=== PATIENT | female | born 1995 | race Caucasian/White ===

== ENCOUNTER 2017-01-15 00:23 | Emergency (ER) | payer BC, SELFPAY ==
[2017-01-15] MEDS ORDERED: Clindamycin 150 MG CAP ONE (00:47)
== END 2017-01-15 00:53 | disposition home or self-care (01) ==
LOC: MADERS 00:23
DX: N61.0 Mastitis without abscess (principal)
CPT/HCPCS: 99283

== ENCOUNTER 2019-01-11 14:41 | Emergency (ER) | payer BC ==
[2019-01-11 15:14] LABS: #Basophils 0.1 thou/uL (0.0-0.2); #Eosinphils 0.6 thou/uL (0.0-0.7); #Lymphocytes 2.3 thou/uL (1.20-3.40); #Monocytes 0.5 thou/uL (0.11-0.59); #Neutrophils 6.5 thou/uL (1.40-6.50); %Basophils 0.7 % (0.0-1.0); %Lymphocytes 23.3 % (21.0-51.0); %Monocytes 5.2 % (0.0-10.0); %Neutrophils 64.8 % (42.0-75.0); Hemoglobin 12.2 g/dL (12.0-16.0); Mean Corpuscular HGB CONC 33.9 g/dL (32.0-36.0); Mean Corpuscular Hemoglobin 27.6 pg (27.0-31.0); Mean Corpuscular Volume 81.7 fL (78.0-98.0); Mean Platelet Volume 6.7 fL (7.4-10.4); Platelet Count 300 thou/uL (130-400); RBC Distribution Width 11.7 % (11.5-14.5); Red Blood Cell (RBC) Count 4.41 mill/uL (4.20-5.40)
[2019-01-11 15:34] LABS: ALT (SGPT) 13 U/L (8-55); AST (SGOT) 18 U/L (5-34); Alkaline Phosphatase 80 U/L (40-150); Anion Gap 12 mmol/L (10-20); BUN (Urea Nitrogen) 9 mg/dL (7.0-18.7); Bilirubin, Total 0.4 mg/dL (0.2-1.2); CK (CPK) 59 U/L (29-168); Calc. Creatinine Clearance 0 mL/min (70-130); Carbon Dioxide 24 mmol/L (22-29); Chloride 106 mmol/L (98-107); Estimated GFR-MDRD Greater than 90; Globulin 3.1 g/dL (2.4-3.5); Glucose 97 mg/dL (70-105); Potassium 4.2 mmol/L (3.5-5.1); Protein, Total 7.1 g/dL (6.0-8.3); Sodium 138 mmol/L (136-145)
[2019-01-11 15:56] LABS: BHCG - Serum Negative (NEGATIVE); Pregs Control Background? CLEAR/WHITE (CLR/WHITE); Pregs Control Bar Appear? YES (CONTROL BAR)
== END 2019-01-11 16:10 | disposition home or self-care (01) ==
LOC: MADERS 14:41
DX: R07.9 Chest pain, unspecified (principal); R55 Syncope and collapse; R06.02 Shortness of breath
CPT/HCPCS: 36415; 80053; 82550; 84484; 84703; 85025; 93005

== ENCOUNTER 2020-02-13 15:44 | Emergency (ER) | payer BC ==
[~2020-02-13 15:44] MED LIST: Iopamidol 370 76% 125 ML VIAL FS ONE; Sodium Chloride 0.9% 100 ML BAG ONE
[2020-02-13 16:15] LABS: #Basophils 0.1 thou/uL (0.0-0.2); #Eosinphils 0.8 thou/uL (0.0-0.7); #Lymphocytes 2.4 thou/uL (1.20-3.40); #Monocytes 0.7 thou/uL (0.11-0.59); #Neutrophils 6.1 thou/uL (1.40-6.50); %Basophils 0.8 % (0.0-1.0); %Eosinophils 7.6 % (0.0-10.0); %Lymphocytes 23.9 % (21.0-51.0); %Monocytes 6.9 % (0.0-10.0); %Neutrophils 60.7 % (42.0-75.0); Hemoglobin 12.6 g/dL (12.0-16.0); Mean Corpuscular HGB CONC 32.2 g/dL (32.0-36.0); Mean Corpuscular Hemoglobin 27.1 pg (27.0-31.0); Mean Corpuscular Volume 84.1 fL (78.0-98.0); Mean Platelet Volume 7.4 fL (7.4-10.4); Platelet Count 317 thou/uL (130-400); RBC Distribution Width 11.5 % (11.5-14.5); Red Blood Cell (RBC) Count 4.63 mill/uL (4.20-5.40); White Blood Cell (WBC) Count 10.1 thou/uL (4.8-10.8)
[2020-02-13 16:28] LABS: ALT (SGPT) 13 U/L (8-55); AST (SGOT) 16 U/L (5-34); Albumin 4.2 g/dL (3.5-5.0); Alkaline Phosphatase 83 U/L (40-110); Anion Gap 16 mmol/L (10-20); BUN (Urea Nitrogen) 10 mg/dL (7.0-18.7); Bilirubin, Total 0.2 mg/dL (0.2-1.2); Calc. Creatinine Clearance 0 mL/min (70-130); Calcium 8.9 mg/dL (7.8-10.44); Carbon Dioxide 20 mmol/L (22-29); Chloride 107 mmol/L (98-107); Estimated GFR-MDRD 84; Globulin 3.2 g/dL (2.4-3.5); Glucose 115 mg/dL (70-105); Magnesium 1.9 mg/dL (1.6-2.6); Potassium 3.6 mmol/L (3.5-5.1); Protein, Total 7.4 g/dL (6.0-8.3); Sodium 139 mmol/L (136-145)
[2020-02-13 16:35] LABS: BHCG - Serum Negative (NEGATIVE); Pregs Control Background? CLEAR/WHITE (CLR/WHITE); Pregs Control Bar Appear? YES (CONTROL BAR)
[2020-02-13 16:56] LABS: Amphetamine Not Detected (NotDetected); Benzodiazepine Screen Not Detected (NotDetected); Cocaine Metabolite Screen Not Detected (NotDetected); Methamphetamine Not Detected (NotDetected); Opiate Screen Not Detected (NotDetected); Phencyclidine (PCP) Not Detected (NotDetected); THC/Cannabinoid Screen Not Detected (NotDetected); Tricyclic Screen Not Detected (NotDetected)
[2020-02-13 16:57] LABS: Barbiturates Screen Not Detected (NotDetected); Medtox Control Line Valid? VALID (VALID); Methadone Not Detected (NotDetected); Oxycodone Screen Not Detected (NotDetected)
--- NOTE | 2020-02-13 17:27 | CT ---
CTA CHEST WITH CONTRAST: 02/13/20 Axial tomograms obtained following pulmonary angio protocol with multiplanar reconstructions and 3D p ostprocessing. INDICATIONS: Chest pain, shortness of breath. FINDINGS: Pulmonary arteries show no evidence of proximal pulmonary embolus to the lobar level. Opacification i s suboptimal to assess the distal pulmonary arteries. The lung acosta are clear. No infiltrate or effusion. Mediastinum is unremarkable. Images through upp er abdomen unremarkable. Osseous structures unremarkable. IMPRESSION: 1. No evidence of proximal pulmonary embolus. 2. No acute lung process. POS: [facility]
[2020-02-13] MEDS ORDERED: Nitroglycerin 2% Ointment 1 INCH/1 GM Packet ONE (17:54)
[2020-02-13] MEDS ORDERED: Clopidogrel Bisulfate 75 MG TAB ONE (17:54)
== END 2020-02-13 19:25 | disposition left against medical advice (07) ==
LOC: MADERS 15:44
DX: I10 Essential (primary) hypertension (principal); R07.9 Chest pain, unspecified
CPT/HCPCS: 36415; 71275; 80053; 80306; 83735; 83880; 84443; 84484; 84703; 85025; 93005; J3490; Q9967

== ENCOUNTER 2020-02-15 18:37 | Emergency (ER) | payer BC ==
--- NOTE | 2020-02-15 19:38 | RAD ---
XR Wrist 3 Rt View STANDARD: 02/15/2020 7:25 PM CLINICAL INDICATION: Right wrist injury COMPARISON: None. FINDINGS: Bones: No acute osseous abnormality. Joints: Joints space is preserved.. Soft Tissue: There is soft tissue swelling surrounding the right wrist.. IMPRESSION: No acute osseous abnormality..
== END 2020-02-15 20:16 | disposition home or self-care (01) ==
LOC: MADERS 18:37
DX: S63.501A Unspecified sprain of right wrist, initial encounter (principal); V89.9XXA Person injured in unspecified vehicle accident, initial encounter

== ENCOUNTER 2022-03-05 09:08 | Emergency (ER) | payer BC ==
[2022-03-05] MEDS ORDERED: Fluorescein Opthalmic Strip ONE (09:20)
[2022-03-05] MEDS ORDERED: Oseltamivir 75 MG CAP ONE (09:20)
[2022-03-05] MEDS ORDERED: Tetracaine 0.5% PF 4 ML BOT ONE (09:20)
== END 2022-03-05 09:40 | disposition home or self-care (01) ==
LOC: MADERS 09:08
DX: H10.9 Unspecified conjunctivitis (principal); E16.2 Hypoglycemia, unspecified; Z79.899 Other long term (current) drug therapy
CPT/HCPCS: 99283